=== PATIENT | female | born 1970 | race Two or more races ===

== ENCOUNTER 2025-04-12 18:35 | Emergency (ER) | payer MEDICAID, SELFPAY ==
[2025-04-12 18:37] VITALS: BMI 29.2
[2025-04-12 18:54] VITALS: BP 145/87; PULSE 72; RESP 18; TEMP 36.8; O2SAT 97
--- NOTE | 2025-04-12 19:23 | EDNOTE_ITS ---
ED GI Bleed RME/HPI General Chief complaint: GI Bleed Stated complaint: BRIGHT RED BLOOD IN STOOL Time Seen by Provider: 04/12/25 19:08 Arrival date/time: 04/12/25 18:35 54F with history of anxiety presents to ED with 1 episode of red blood in stool/tissue paper this morning when patient had constipation and strained a lot while having BM. Patient denies ab pain. This has never happened before. Limitations: no limitations Related Data Previous Rx's ?Medication ?Instructions ?Recorded lorazepam 1 mg tablet 1 mg PO BID Anxiety #20 tabs 01/18/17 hydrocortisone 2.5 % topical cream 1 applic MD QDAY MD N hemorrhoids 04/12/25 with perineal applicator #30 grams (Anusol-HC) lidocaine 5 % topical ointment 1 applic topical BID MD N pain #30 04/12/25 grams Allergies Allergy/AdvReac Type Severity Reaction Status Date / Time NKA* Allergy Uncoded 04/12/25 18:39 Review of Systems Review of Systems Systems Reviewed: All systems reviewed, normal except as documented Gastrointestinal Gastrointestinal: Reports as per HPI and Reports hematochezia Past Medical History Social History SMOKING STATUS: Never smoker ED Exam General Limitations: Present no limitations General appearance: Present alert and in no apparent distress Head Head exam: Present atraumatic Neck Neck exam: Present normal inspection, full ROM and trachea midline Chest Chest inspection: Present normal inspection and symmetric chest wall rise Rectal Exam Rectal exam: Present hemorrhoids (external) Neurological Exam Neurological exam: Present alert and oriented X3 Psychiatric Psychiatric exam: Present normal affect and normal mood Skin Skin exam: Present warm, dry, intact and normal color Course Quality Measures none Vital Signs Vital signs: Vital Signs Temperature 98.3 F 04/12/25 18:54 Pulse Rate 72 04/12/25 18:54 Respiratory Rate 18 04/12/25 18:54 Blood Pressure 145/87 H 04/12/25 18:54 Pulse Oximetry (%) 97 04/12/25 18:54 Oxygen Delivery Method Room Air 04/12/25 18:54 O2 at 97% on RA and WNLs GI Bleed MDM Narrative MDM Narrative:: 54F with history of anxiety presents to ED with 1 episode of red blood in stool/tissue paper this morning when patient had constipation and strained a lot while having BM. Patient denies ab pain. This has never happened before. Physical exam with journeyman lineman Rowan RN reveals several external hemorrhoids. Internal exam (which patient wanted) unremarkable. Patient is afebrile, calm, and alert. Meds and pediatric genetic counselor given. Patient data External records reviewed:: [facility] previous records Clinical information provided by:: patient Social determinants that could affect healthcare access:: mental health Patient has the following chronic illnesses:: anxiety How is presenting disease/condition affected by chronic disease/condition?: exacerbated by Evaluation data The following diagnostics were reviewed and interpreted by me:: other (specify) (none) Lab and/or radiology exams considered but not ordered:: not ordered Interpretation Summary: n/a Medications / Prescriptions Medications or Prescriptions considered but not ordered:: not ordered Medication administrations:: n/a Consultations Consultation(s) initiated? (list below): No Diagnosis GI bleed differential diagnosis: hemorrhoids, infectious diarrhea, esophageal varices, gastritis, Shakira-Scott syndrome, Upper gastrointestinal hemorrhage, Lower gastrointestinal hemorrhage, hematochezia, melena and anal fissure Most likely diagnosis given after review of the tests above:: hemorrhoids Admission Indicated Admission indicated?: not indicated Admission Request Was there a request for admission?: No Disposition Plan Disposition Plan: Discharge Discharge Attestation Discharge Attestation: The patient and all family members were given an opportunity to ask questions and understood the discharge instructions. Discharge instructions specifically effects, indications for sooner follow up or return to the emergency department, and the expected course of current diagnosis. Patient condition: Stable Discharge Plan Plan Patient Disposition: HOME (Self Care) Discharge Disposition comment: Stable Prescriptions/Referrals Prescriptions/Med Rec: New hydrocortisone [Anusol-HC] 2.5 % cream with perineal applicator 1 applic MD QDAY PRN (Reason: hemorrhoids) Qty: 30 0RF lidocaine 5 % ointment 1 applic topical BID PRN (Reason: pain) Qty: 30 0RF Rx Instructions: Use 15 min prior to wanting to have a BM No Action lorazepam 1 MG tablet 1 mg PO BID Qty: 20 0RF Problem List Clinical Impression: Hemorrhoids Patient/Caregiver Discharge Instructions Education Materials: ED Hemorrhoids Additional Instructions: Please follow-up with PCP within 24-48 hours and return immediately if symptoms worsen. Print Language: Irish Stand Alone Forms: Patient Portal Info Letter CULLEN/LEONILA Supervising Physician CULLEN/LEONILA Supervising Physician: Dr. German
== END 2025-04-12 19:40 | disposition home or self-care (01) ==
LOC: SERX 19:26
PROVIDERS: Emergency Provider Emergency Medicine; PCP Physician Assistant
DX: F41.9 Anxiety disorder, unspecified (principal)
CPT/HCPCS: 99281